=== PATIENT | female | born 1970 | race African-American/Black ===

== ENCOUNTER 2018-11-29 15:49 | Emergency (ER) | payer SELFPAY ==
[~2018-11-29] VITALS: Ht 170.2 cm; Wt 81.6 kg
[~2018-11-29 15:49] MED LIST: BIOT300T4 PO; FERR325T58 PO; OMEG500C PO; PNV1TABL25 PO
[2018-11-29 16:35] VITALS: BP 128/75
[2018-11-29] MEDS ORDERED: CYCL10TA2 PO (17:29)
[2018-11-29] MEDS ORDERED: KETOROLAC 30 MG/ML VIAL. IM ONE (17:30)
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
== END 2018-11-29 17:35 | disposition home or self-care (01) ==
LOC: ER 15:49
DX: M54.6 Pain in thoracic spine (principal); S06.0X0A Concussion without loss of consciousness, initial encounter; Z90.710 Acquired absence of both cervix and uterus; V47.9XXA Unspecified car occupant injured in collision with fixed or stationary object in traffic accident, initial encounter; Y93.89 Activity, other specified; Y92.410 Unspecified street and highway as the place of occurrence of the external cause; Y99.8 Other external cause status
CPT/HCPCS: 96372; 99283; J1885